=== PATIENT | female | born 1985 | race Caucasian/White ===

== ENCOUNTER 2017-10-21 11:31 | Inpatient (IN) | payer BC ==
[~2017-10-21] VITALS: Ht 154.9 cm; Wt 111.1 kg
[~2017-10-21 11:31] MED LIST: [UNRECOGNIZED DRUG - CODE] PO
[2017-10-21 11:38] VITALS: BP 147/92
--- NOTE | 2017-10-21 11:46 | NUR ---
Note undone in EDM - 10/21/17 at 1556 by [email or web address] PATIENT PRESENTS TO ED WITH [] . PT STATES [] . DENIES N/V/D; SKIN IS PINK/WARM/DRY; AAOX4 WITH EVEN AND STEADY GAIT; LUNGS CLEAR BL; HR EVEN AND REGULAR; PT DENIES ANY FEVER, CP, SOB, OR COUGH AT THIS TIME; PATIENT STATES PAIN OF 0/10 AT THIS TIME; VSS; PATIENT POSITIONED FOR COMFORT; HOB ELEVATED; BEDRAILS UP X2; BED DOWN. ER MD MADE AWARE OF PT STATUS.PATIENT PRESENTS TO ED WITH PAIN IN LEFT CALF WHEN WALKING . PT DENIES N/V/D; SKIN IS PINK/WARM/DRY; AAOX4 WITH EVEN AND STEADY GAIT; LUNGS CLEAR BL; HR EVEN AND REGULAR; PT DENIES ANY FEVER, CP, SOB, OR COUGH AT THIS TIME; PATIENT STATES PAIN OF 8/10 AT THIS TIME; VSS; PATIENT POSITIONED FOR COMFORT; HOB ELEVATED; BEDRAILS UP X2; BED DOWN. ER MD MADE AWARE OF PT STATUS.
--- NOTE | 2017-10-21 11:46 | NUR ---
PT CAME TO ED FOR C/O OF LEFT CALF PAIN WHEN WALKING. SHE HAS HAD 8/10 PAIN THAT RADIATES TO BACK FOR THE LAST 4 DAYS. CALF IS PAINFUL TO TOUCH NO REDDNESS NOTED NO C/O OF NUMBNESS AND PAIN IN FEET.PEDAL PULSES ARE PRESENT. ADMITS TO SMOKING AND TAKING CONTROL PILLS. RESPIRATIONS ARE EVEN AND UNLABORED, DENIES SOB, FEVER OR CHILLS.
[2017-10-21 13:15] LABS: BASOPHILS # (AUTO) 0.1 K/uL (0.00-0.22); BASOPHILS % (AUTO) 0.6 % (0.0-2.0); EOSINOPHILS # (AUTO) 0.2 K/uL (0-0.4); EOSINOPHILS % (AUTO) 1.9 % (0.0-4.0); HEMATOCRIT 39.4 % (36-48); HEMOGLOBIN 13.1 g/dL (12.0-16.0); LYMPHOCYTES # (AUTO) 2.6 K/uL (2.5-16.5); LYMPHOCYTES % (AUTO) 23.7 % (20.5-51.1); MEAN CORPUSCULAR HEMOGLOBIN 29 pg (27-31); MEAN CORPUSCULAR HGB CONC 33 g/dL (33-37); MEAN CORPUSCULAR VOLUME 87.8 fL (80-94); MONOCYTES # (AUTO) 0.8 K/uL (0.8-1.0); MONOCYTES % (AUTO) 7.5 % (1.7-9.3); NEUTROPHILS # (AUTO) 7.3 K/uL (1.8-7.7); NEUTROPHILS % (AUTO) 66.3 % (42.2-75.2); PLATELET COUNT (AUTO) 146 K/uL (140-450); RED BLOOD CELL COUNT(AUTO) 4.49 MIL/uL (4.20-5.40); RED CELL DISTRIBUTION WIDTH 13.7 % (11.6-13.7)
[2017-10-21] MEDS ORDERED: LOVENOX 1MG/KG Q24H SUBQ SCH (13:15)
[2017-10-21 13:36] LABS: ANION GAP 12.1 (8-16); CARBON DIOXIDE 27.1 mmol/L (21-32); CREATININE 0.6 mg/dL (0.6-1.3); POTASSIUM 4.2 mmol/L (3.5-5.1)
[2017-10-21 13:43] LABS: ALBUMIN 3.3 g/dL (3.4-5.0); TOTAL BILIRUBIN 0.2 mg/dL (0.0-1.0)
--- NOTE | 2017-10-21 13:43 | NUR ---
Yolie mazariegos in [facility] - 10/21/17 at 1602 by DELMAR HGB 6.3, DR CHARLES SUMMERS.
[2017-10-21 14:02] LABS: D-DIMER > 5000 ng/ml (0-400)
[2017-10-21] MEDS ORDERED: ENOXAPARIN 100 MG/ML SYR SUBQ SCH (14:10)
[2017-10-21] MEDS ORDERED: LORazepam 2 MG/ML VIAL IVP PRN (14:50)
[2017-10-21] MEDS ORDERED: ONDANSETRON 4 MG/2 ML VIAL IVP PRN (14:50)
[2017-10-21] MEDS ORDERED: ACETAMINOPHEN 325 MG TAB PO PRN (14:50)
[2017-10-21] MEDS ORDERED: HYDROcodone/APAP 5/325 MG 1 TAB TAB PO PRN (14:50)
[2017-10-21] MEDS ORDERED: MORPHINE SULFATE 4 MG/ML SYR IVP PRN (14:50)
[2017-10-21] MEDS ORDERED: LOVENOX 1MG/KG Q12H SUBQ SCH (15:00)
--- NOTE | 2017-10-21 16:00 | NUR ---
RECEIVED NEW PATIENT FROM ER ,UNDER THE CARE OF DR CLAUDIO MOORE WITH A DX OF DVT ON LEFT LEG. PATIENT AWAKE ALERT AND ORIENTED X 4 NO S/S OF RESP DISTRESS NOTED .ABLE TO MAKE NEEDS KNOWN . AT THE BED SIDE HELPING WITH THE NEEDS. STATED HAS TOLERABLE 4/10 ON HER LEFT LEG. DR CLAUDIO Luevano VISITED PATIENT. UNIT ORIENTATION GIVEN SAFETY HAS BEEN TAUGHT. PLAN OF CARE DISCUSSED WITH THE PATIENT VITALS STABLE WILL CONTINUE TO MONITOR.
[2017-10-21 16:40] VITALS: BP 130/63
[2017-10-21] MEDS ORDERED: WARFARIN 5 MG TAB PO SCH (17:00)
--- NOTE | 2017-10-21 17:24 | NUR ---
DUE MEDS COUMADIN 10MG PO GIVEN
--- NOTE | 2017-10-21 18:29 | NUR ---
SAFETY MAINTAINED CALL LIGHT IN REACH . STABLE CONDITION AT THIS TIME.
--- NOTE | 2017-10-21 19:10 | NUR ---
RECEIVED PT FROM DAY SHIFT NURSE GANGA-RN. PT RESTING IN BED. AOX4, ON ROOM AIR WITH LEFT AC #22G. FAMILY AT BEDSIDE. AMBULATORY, RESTROOM PRIVILEGES HOWEVER MINIMIZE WALKING-PT WALKS SLOWLY AND HUNCHED OVER. DVT LEFT LEG. REGULAR DIET. NO S/S OF RESPIRATORY DISTRESS OR DISCOMFORT AT THIS TIME. BED IN LOWEST POSITION. CALL LIGHT WITHIN REACH. WILL CONTINUE TO MONITOR.
[2017-10-21 20:00] VITALS: BP 135/73
--- NOTE | 2017-10-21 22:37 | NUR ---
PT RESTING IN BED. WILL CONTINUE TO MONITOR.
[2017-10-22] VITALS: BP 135/73
--- NOTE | 2017-10-22 00:34 | NUR ---
PT SLEEPING AT THIS TIME. NO S/S OF RESPIRATORY DISTRESS OR DISCOMFORT NOTED. BED IN LOWEST POSITION. CALL LIGHT WITHIN REACH. WILL CONTINUE TO MONITOR.
--- NOTE | 2017-10-22 02:42 | NUR ---
PT CONTINUES TO SLEEP. WILL CONTINUE TO MONITOR.
[2017-10-22] MEDS ORDERED: ENOXAPARIN 80 MG/0.8 ML SYR SUBQ SCH (03:00)
[2017-10-22] MEDS ORDERED: ENOXAPARIN 30 MG/0.3 ML SYR SUBQ SCH (03:00)
--- NOTE | 2017-10-22 03:22 | NUR ---
SCHEDULED MEDICATIONS GIVEN. PT TOLERATED WELL. WILL CONTINUE TO MONITOR.
--- NOTE | 2017-10-22 05:22 | NUR ---
PT SLEEPING AT THIS TIME. NO S/S OF RESPIRATORY DISTRESS OR DISCOMFORT NOTED AT THIS TIME. BED IN LOWEST POSITION. CALL LIGHT WITHIN REACH. WILL CONTINUE TO MONITOR.
[2017-10-22 06:51] LABS: BASOPHILS % (AUTO) 0.3 % (0.0-2.0); EOSINOPHILS # (AUTO) 0.3 K/uL (0-0.4); EOSINOPHILS % (AUTO) 3.1 % (0.0-4.0); HEMATOCRIT 35.6 % (36-48); LYMPHOCYTES # (AUTO) 3.8 K/uL (2.5-16.5); LYMPHOCYTES % (AUTO) 37.3 % (20.5-51.1); MEAN CORPUSCULAR HEMOGLOBIN 30 pg (27-31); MEAN CORPUSCULAR HGB CONC 34 g/dL (33-37); MEAN CORPUSCULAR VOLUME 88.4 fL (80-94); MONOCYTES # (AUTO) 1.1 K/uL (0.8-1.0); MONOCYTES % (AUTO) 10.5 % (1.7-9.3); NEUTROPHILS % (AUTO) 48.8 % (42.2-75.2); PLATELET COUNT (AUTO) 152 K/uL (140-450); RED BLOOD CELL COUNT(AUTO) 4.03 MIL/uL (4.20-5.40); RED CELL DISTRIBUTION WIDTH 13.6 % (11.6-13.7); WHITE BLOOD COUNT (AUTO) 10.2 K/uL (4.8-10.8)
--- NOTE | 2017-10-22 07:05 | NUR ---
ENDORSED PT TO DAY SHIFT NURSE DON TO CONTINUE PT CARE. PT STABLE AT THIS TIME.
--- NOTE | 2017-10-22 07:06 | NUR ---
RECEIVED REPORT FROM MEDICAL BILLING MANAGER NURSE AT BEDSIDE FOR CONTINUITY OF CARE . PATIENT STABLE. PATIENT RESTING IN BED WITH EYES CLOSED. RESP EVEN AND UNLABORED. IV SITE TO LEFT HAND 20G. SL.
[2017-10-22 08:00] VITALS: BP 107/63
--- NOTE | 2017-10-22 08:00 | NUR ---
INITIAL ASSESSMENT PERFORMED. PATIENT ALERT AND ABLE TO VERBALIZE NEEDS. NO ACUTE DISTRESS. RESP EVEN AND UNLABORED. PATIENT LUNG SOUNDS CLEAR. BOWEL SOUNDS ACTIVE. PATIENT WITH IV TO LEFT FOREARM WITH 20G SL. SKIN INTACT. PLAN OF CARE DISCUSSED WITH PATIENT.BOARD UPDATED. PATIENT AMBULATING TO RESTROOM VOIDING FREELY. PATIENT VERBALIZED PAIN WILL MEDICATE. CALL LIGHT WITHIN REACH. WILL CONT TO MONITOR.
[2017-10-22 08:22] LABS: PROTHROMBIN TIME 10.4 secs (10.8-13.4)
[2017-10-22] MEDS ORDERED: NORETHINDRONE E ESTRADIOL IRON PO SCH (09:00)
--- NOTE | 2017-10-22 10:18 | NUR ---
PATIENT HAS BEEN SCREENED AND CATEGORIZED HIGH NUTRITION RISK. PATIENT WILL BE SEEN WITHIN 1-2 DAYS OF ADMISSION. 10/22/17 - 10/23/[address]
--- NOTE | 2017-10-22 10:30 | NUR ---
PATIENT ALERT AND ABLE TO MAKE NEEDS KNOWN. NO ACUTE DISTRESS NOTED. RESP EVEN AND UNLABORED. PATIENT VERBALIZED PAIN TOLERABLE. CALL LIGHT WITHIN REACH. WILL CONT TO MONITOR.
[2017-10-22 11:02] LABS: ANION GAP 17.8 (8-16); CARBON DIOXIDE 23.3 mmol/L (21-32); CREATININE 0.7 mg/dL (0.6-1.3); POTASSIUM 4.1 mmol/L (3.5-5.1)
--- NOTE | 2017-10-22 12:49 | NUR ---
RECEIVED A CALL FROM KRISTEN. FROM [facility], THE CM IS TALYA, NO PHONE NUMBER. WAS TOLD TO FAX REVIEW TO [phone]. PENDING REFERENCE # [id number]. FAXED INITIAL REVIEW TO AT [phone]. PHONE FOR , ,OPT 1.
[2017-10-22] MEDS ORDERED: RIVAROXABAN 15 MG TAB PO SCH ×2 (13:13→21:00)
--- NOTE | 2017-10-22 14:06 | NUR ---
10/22/17 RD INITIAL ASSESSMENT COMPLETED PLEASE REFER TO NUTRITION ASSESSMENT UNDER CARE ACTIVITY FOR ESTIMATED NUTRITIONAL NEEDS. 1. CONTINUE REGULAR DIET TOLERATED 2. PROVIDED PT WITH FOOD-DRUG INTERACTION AND HEALTHY EATING HABITS EDUCATION. PT ACCEPTED. 3. RD TO FOLLOW-UP 5-7 DAYS, LOW RISK THAI PALMA RD
--- NOTE | 2017-10-22 14:22 | NUR ---
RECEIVED AN ORDER TO SEE IF PATIENT'S INSURANCE COVERS XARELTO. I WAS INFORMED THAT HER PHARMACY WAS [facility] IN [place] [phone]. I CALLED THEM AND SPOKE WITH THE PHARMACIST HEBERT. SHE SAID THAT THE PATIENT WILL BE COVERED, BUT DOES HAVE A $20.00 COPAY. I INFORMED MAGDALENO DAVENPORT TO INFORM THE PATIENT.
[2017-10-22 16:00] VITALS: BP 107/58
[2017-10-22] MEDS ORDERED: WARFARIN 5 MG TAB PO SCH (17:00)
[2017-10-22] MEDS ORDERED: RIVA15TA1 PO (17:15)
--- NOTE | 2017-10-22 17:20 | NUR ---
PATIENT MADE AWARE OF DISCHARGE ORDER. PATIENT VERBALIZED UNDERSTANDING AND AGREEMENT. WILL DISCHARGE PENDING TRANSPORTATION AVAILABILITY.
--- NOTE | 2017-10-22 18:48 | NUR ---
DISCUSSED DISCHARGE INSTRUCTIONS AT BEDSIDE WITH PT. PATIENT VERBALIZED UNDERSTANDING AND AGREEMENT. RX SCRIPT PROVIDED TO PATIENT. ALL BELONGINGS IN PT POSSESSION. IV SITE REMOVED. TOLERATED WELL. LUMEN INTACT. ID BAND REMOVED. PATIENT TO BE DISCHARGED ONCE RIDE ARRIVES. PATIENT STATED THEY ARE 5 MINUTES AWAY AND WILL NOTIFY WHEN TO BE WHEELED OUT.
--- NOTE | 2017-10-22 19:00 | NUR ---
PATIENT LEFT UNIT IN WITHOUT DIFFICULTIES IN PRIVATE VEHICLE ACCOMPANIED BY DAUGHTER.
[2017-10-23] MEDS ORDERED: CLINICAL MONITORING MC SCH (09:00)
== END 2017-10-22 19:00 | disposition home or self-care (01) | DRG 300 ==
LOC: MED 11:31 → MTU 14:55
PROVIDERS: ADMIT Internal Medicine Cardiovascular Disease; ATTEND Internal Medicine Cardiovascular Disease
DX: I82.402 Acute embolism and thrombosis of unspecified deep veins of left lower extremity (principal); Z68.42 Body mass index [BMI] 45.0-49.9, adult; E88.09 Other disorders of plasma-protein metabolism, not elsewhere classified; D72.829 Elevated white blood cell count, unspecified; E66.9 Obesity, unspecified; R79.1 Abnormal coagulation profile
CPT/HCPCS: 36415; 73590; 80048; 80053; 82550; 85025; 85379; 85610; 85730; 87081; 93971; J1650; Q0092

== ENCOUNTER 2018-09-25 15:50 | Inpatient (IN) | payer BC ==
[~2018-09-25] VITALS: Ht 157.5 cm; Wt 121.1 kg
[~2018-09-25 15:50] MED LIST changes: +RIVA15TA1 PO; -[UNRECOGNIZED DRUG - CODE] PO
[2018-09-25 15:58] VITALS: BP 169/101
--- NOTE | 2018-09-25 17:14 | NUR ---
PT AMBULATED TO BED 5 AT THIS TIME. REPORT GIVEN TO GABRIEL DOLAN.
--- NOTE | 2018-09-25 17:41 | NUR ---
PT BIB SELF C/O CRAMPING IN L THIGH X2. PT REPORTS CONSTANT 8/10 IN MEDIAL THIGH. PT TREATED WITH TYLEONOL WITH NO RELIEF. OCCURED WHILE DRIVING, AND HAS GOTTEN WORSE. PT WENT OFF LOVENOX 3 WEEKS AGO. PT HAS HX OF LT LOW LEG DVT 2018 FROM THE PILL.UA DONE HCG NEG, PT DENIES N/V/D; SKIN IS INTACT, PINK/WARM/DRY; AAOX4, PERRL, WITH EVEN AND STEADY GAIT; LUNGS CLEAR BL, BREATHING UNLABORED; HR EVEN AND REGULAR, BL PERIPHERAL PULSES PRESENT; BS ACTIVE X4, NO TENDERNESS TO PALPATION. PT DENIES ANY FEVER, CP, SOB, OR COUGH AT THIS TIME; PT STATES 7/10 PAIN AT THIS TIME; VSS; PATIENT POSITIONED FOR COMFORT; HOB ELEVATED; BEDRAILS UP X2; BED DOWN.
[2018-09-25 18:03] LABS: BASOPHILS # (AUTO) 0.1 K/uL (0.00-0.22); EOSINOPHILS # (AUTO) 0.3 K/uL (0-0.4); EOSINOPHILS % (AUTO) 2.5 % (0.0-4.0); HEMATOCRIT 37.9 % (36-48); LYMPHOCYTES # (AUTO) 2.8 K/uL (2.5-16.5); LYMPHOCYTES % (AUTO) 25.9 % (20.5-51.1); MEAN CORPUSCULAR HEMOGLOBIN 28 pg (27-31); MEAN CORPUSCULAR HGB CONC 32 g/dL (33-37); MEAN CORPUSCULAR VOLUME 87.7 fL (80-94); MONOCYTES # (AUTO) 0.7 K/uL (0.8-1.0); MONOCYTES % (AUTO) 6.4 % (1.7-9.3); NEUTROPHILS # (AUTO) 6.9 K/uL (1.8-7.7); NEUTROPHILS % (AUTO) 64.2 % (42.2-75.2); PLATELET COUNT (AUTO) 260 K/uL (140-450); RED BLOOD CELL COUNT(AUTO) 4.32 MIL/uL (4.20-5.40); RED CELL DISTRIBUTION WIDTH 14.8 % (11.6-13.7); WHITE BLOOD COUNT (AUTO) 10.7 K/uL (4.8-10.8)
[2018-09-25 18:04] LABS: APPEARANCE,URINE CLOUDY (CLEAR); BILIRUBIN,URINE NEGATIVE (NEGATIVE); BLOOD, URINE TRACE-L (NEGATIVE); COLOR,URINE YELLOW (YELLOW); LEUKOCYTE ESTERASE ,URINE NEGATIVE (NEGATIVE); NITRITE, URINE NEGATIVE (NEGATIVE); PH,URINE 5.5 (5.0-9.0); UGLUCOSE NEGATIVE (NEGATIVE)
--- NOTE | 2018-09-25 18:22 | NUR ---
PT APPEARS TO BE RELAXED, RESTING IN BED. VS WNL. DENIES ANY PAIN. DENIES N/V. BREATHING NORMAL. NO SOB OR ACUTE DISTRESS NOTED.
[2018-09-25 18:24] LABS: ANION GAP 12.2 (8-16); CREATININE 0.7 mg/dL (0.6-1.3); POTASSIUM 4.2 mmol/L (3.5-5.1)
[2018-09-25 18:29] LABS: ALBUMIN 3.7 g/dL (3.4-5.0); TOTAL BILIRUBIN 0.3 mg/dL (0.0-1.0)
[2018-09-25] MEDS ORDERED: HEPARIN PER PHARMACY MC ONE ×2 (19:05)
[2018-09-25] MEDS ORDERED: hePARIN / DEXT 5% PREMIX 250 ML IV ONE (19:05)
[2018-09-25] MEDS ORDERED: NACL 0.9% 1,000 ML IV SCH (19:08)
[2018-09-25] MEDS ORDERED: HYDROcodone/APAP 7.5/325 MG 1 TAB PO PRN (19:10)
[2018-09-25] MEDS ORDERED: MORPHINE SULFATE 2 MG/ML SYR IVP PRN (19:10)
[2018-09-25] MEDS ORDERED: DOCUSATE SODIUM 100 MG GELCAP PO PRN (19:10)
[2018-09-25] MEDS ORDERED: ACETAMINOPHEN 325 MG TAB PO PRN ×2 (19:10→23:10)
[2018-09-25] MEDS ORDERED: ONDANSETRON 4 MG/2 ML VIAL IM/IVP PRN (19:10)
[2018-09-25 19:11] LABS: PROTHROMBIN TIME 9.3 secs (10.8-13.4)
--- NOTE | 2018-09-25 19:16 | NUR ---
REPORT GIVEN TO SMASHER RN FOR CONTINUITY OF CARE.
--- NOTE | 2018-09-25 19:30 | NUR ---
RECEIVED REPORT FROM AM NURSE. PT LAYING IN BED, RR EVEN AND UNLABORED. DENIES NEURO CHANGES, CP OR SOB. IVs STARTED ON LAC AND RAC. ALL NEEDS MET.
[2018-09-25] MEDS ORDERED: hePARIN / DEXT 5% PREMIX 250 ML IV SCH (19:40)
[2018-09-25] MEDS ORDERED: HEPARIN PER PHARMACY MC PRN (19:40)
--- NOTE | 2018-09-25 19:40 | NUR ---
MAGALY NINO FROM PHARMACY, WAS NOTIFIED THAT HEPARIN WILL BE VERIFIED IN 15 MINS. WILL NOTIFY MEDSURG NURSE.
[2018-09-25 19:45] LABS: BARBITURATE, URINE NEG. ng/ml (NEG <=200); BENZODIAZEPINE, URINE NEG. ng/mL (NEG <=200); CANNABINOID, URINE POS. ng/mL (NEG <=50); COCAINE, URINE NEG. ng/mL (NEG <=300); OPIATE, URINE NEG. ng/mL (NEG <=2000); PHENCYCLIDINE SCREEN,URINE NEG. ng/mL (NEG <=25)
[2018-09-25 19:56] LABS: PHOSPHORUS 3.9 mg/dL (2.5-4.9); THYROID STIMULATING HORMONE 1.5 uIU/mL (0.34-3.74)
--- NOTE | 2018-09-25 20:00 | NUR ---
Patient will be admitted to care of DR SNYDER. Admited to [facility]. Will go to [id number]. Belongings list completed. Report to MAGDALENO CRAIG.
--- NOTE | 2018-09-25 20:12 | NUR ---
PT ARRIVED AT UNIT VIA WHEELCHAIR, PT AMBULATED TO RESTROOM THEN TO BED, TOLERATED WELL, REPORT RECEIVED FROM ER NURSE MICHELLE RN, PT STABLE, NO DISTRESS NOTED, IV TO R AC 20G PATENT, INTACT, AND L AC 20G PATENT, INTACT, SL, PT ON ROOM AIR, NO SOB, REPORTED HAVING TOLERABLE PAIN AT THIS MOMENT, ORIENT PT TO ROOM, BED, AND CALL LIGHT, MRSA SWAB TAKEN, INITIAL ASSESSMENT DONE, ALL SAFETY PRECAUTION MET, CALL LIGHT WITHIN REACH, WILL CONTINUE TO MONITOR.
[2018-09-25 20:20] VITALS: BP 110/62
--- NOTE | 2018-09-25 20:46 | NUR ---
CALLED DR. BERTHA Jane FOR ORDERS, AWAITING DR. WITT BACK.
--- NOTE | 2018-09-25 21:06 | NUR ---
PAGED DR. STONE AGAIN REGARDING PT ORDER. AWAITING , TO CALL BACK.
[2018-09-25] MEDS ORDERED: PHARMACY TO DOSE MC PRN (21:15)
--- NOTE | 2018-09-25 21:18 | NUR ---
DR. STONE CALLED BACK AND ORDERED REGULAR DIET, LOVENOX PER PHARMACY AND COUMADIN PER PHARMACY DOSING. WILL PUT IN ORDERS AND CONTINUE WITH ORDERS.
--- NOTE | 2018-09-25 22:11 | NUR ---
PT STATED FEELING DISCOMFORT TO L AC 20G IV, IV TAKEN OUT, CATH INTACT, ORDERED PT SL, PT RESTING, NO DISTRESS NOTED, CALL LIGHT WITHIN REACH, WILL CONTINUE TO MONITOR.
[2018-09-25] MEDS ORDERED: ONDANSETRON 4 MG/2 ML VIAL IVP PRN (23:10)
[2018-09-25] MEDS ORDERED: LORazepam 2 MG/ML VIAL IVP PRN (23:10)
[2018-09-25] MEDS: ENOXAPARIN 120 MG/0.8 ML SYR SUBQ SCH (23:21)
[2018-09-26 00:10] VITALS: BP 104/40
[2018-09-26] MEDS: HYDROcodone/APAP 5/325 MG 1 TAB TAB PO PRN ×2 (00:10→20:37)
--- NOTE | 2018-09-26 00:10 | NUR ---
CHECKED ON PT, V/S TAKEN, WNL, PT STATED HAVING PAIN 6/10, PAIN MEDICATION PER DR ORDER GIVEN, PT TOLERATED WELL, NO DISTRESS NOTED, CALL LIGHT WITHIN REACH, WILL CONTINUE TO MONITOR.
--- NOTE | 2018-09-26 03:40 | NUR ---
PT SLEEPING, NO DISTRESS NOTED, CALL LIGHT WITHIN REACH, WILL CONTINUE TO MONITOR.
[2018-09-26 06:58] LABS: BASOPHILS % (AUTO) 0.5 % (0.0-2.0); EOSINOPHILS # (AUTO) 0.4 K/uL (0-0.4); EOSINOPHILS % (AUTO) 3.6 % (0.0-4.0); HEMOGLOBIN 11.5 g/dL (12.0-16.0); LYMPHOCYTES % (AUTO) 38.2 % (20.5-51.1); MEAN CORPUSCULAR HEMOGLOBIN 28 pg (27-31); MEAN CORPUSCULAR HGB CONC 32 g/dL (33-37); MEAN CORPUSCULAR VOLUME 87.9 fL (80-94); MONOCYTES # (AUTO) 0.7 K/uL (0.8-1.0); NEUTROPHILS # (AUTO) 5.3 K/uL (1.8-7.7); NEUTROPHILS % (AUTO) 50.7 % (42.2-75.2); PLATELET COUNT (AUTO) 261 K/uL (140-450); RED CELL DISTRIBUTION WIDTH 14.7 % (11.6-13.7); WHITE BLOOD COUNT (AUTO) 10.5 K/uL (4.8-10.8)
--- NOTE | 2018-09-26 07:21 | NUR ---
ENDORSED PT TO DAY SHIFT NURSE HELENA DOLAN, PT STABLE, NO DISTRESS NOTED, CALL LIGHT WITHIN REACH, WILL CONTINUE TO MONITOR.
[2018-09-26 07:22] LABS: ALBUMIN 3.3 g/dL (3.4-5.0); ANION GAP 9.6 (8-16); CARBON DIOXIDE 30.8 mmol/L (21-32); CREATININE 0.6 mg/dL (0.6-1.3); POTASSIUM 4.4 mmol/L (3.5-5.1); TOTAL BILIRUBIN 0.2 mg/dL (0.0-1.0)
--- NOTE | 2018-09-26 07:22 | NUR ---
RECEIVED REPORT FROM THERAPEUTIC RECREATION SPECIALIST NURSE FOR CONTINUITY OF CARE. PT IN STABLE CONDITION. RESPIRATIONS EVEN AND UNLABORED. IV INTACT AND PATENT. SAFETY MEASURES IN PLACE. BED IN LOW POSITION. CALL LIGHT AT BEDSIDE. WILL CONTINUE TO MONITOR.
[2018-09-26 08:00] VITALS: BP 120/60
--- NOTE | 2018-09-26 08:36 | NUR ---
PATIENT HAS BEEN SCREENED AND CATEGORIZED HIGH NUTRITION RISK. PATIENT WILL BE SEEN WITHIN 1-2 DAYS OF ADMISSION. 09/26/18-09/27/[address]
--- NOTE | 2018-09-26 09:00 | NUR ---
GAVE ORDERED DUE MEDICATION. PT TOLERATED WELL. WILL CONTINUE TO MONITOR.
[2018-09-26] MEDS: ENOXAPARIN 120 MG/0.8 ML SYR SUBQ SCH (09:57)
--- NOTE | 2018-09-26 11:44 | NUR ---
PT LYING IN BED IN STABLE CONDITION WITH FAMILY AT BEDSIDE. WILL CONTINUE TO MONITOR. PT IN STABLE CONDITION. BED IN LOW POSITION.
--- NOTE | 2018-09-26 14:30 | NUR ---
PT LYING IN BED WATCHING TV IN STABLE CONDITION. WILL CONTINUE TO MONITOR. BED IN LOW POSITION. CALL LIGHT AT BEDSIDE.
--- NOTE | 2018-09-26 15:54 | NUR ---
09/26/18 RD INITIAL ASSESSMENT COMPLETED PLEASE REFER TO NUTRITION ASSESSMENT UNDER CARE ACTIVITY FOR ESTIMATED NUTRITIONAL NEEDS. 1. CONTINUE REGULAR DIET TOLERATED 2. RD PROVIDED FOOD AND MEDICATION INTERACTION EDUCATION. PT ACCPETED 3. RD TO FOLLOW-UP 5-7 DAYS, LOW RISK DAVID LANDIS RD
[2018-09-26 16:00] VITALS: BP 110/58
[2018-09-26] MEDS ORDERED: WARFARIN 5 MG TAB PO SCH (17:00)
--- NOTE | 2018-09-26 17:00 | NUR ---
COUMADIN NOT GIVEN PER CONSULT WITH ROJELIO LYNO.
--- NOTE | 2018-09-26 19:34 | NUR ---
GAVE REPORT TO INSECTICIDE EXPERT NURSE FOR CONTINUITY OF CARE. PT IN STABLE CONDITION.
--- NOTE | 2018-09-26 19:35 | NUR ---
REPORT RECEIVED FROM AM NURSE AT BEDSIDE. PT IN STABLE CONDITION. AAOX4. INTRODUCED SELF TO PT. BOARD UPDATED. NO COMPLAINTS OF PAIN. NO SOB. AFEBRILE. IV SITE R AC 20G SL PATENT AND INTACT. SKIN WARM, DRY, AND INTACT WITH NO OPEN WOUNDS. BED LOCKED IN LOW POSITION. CALL GREEN WITHIN REACH. SAFETY PRECAUTIONS IN PLACE. ALL NEEDS MET AT THIS TIME.
--- NOTE | 2018-09-26 20:15 | NUR ---
GAVE REPORT TO ONCOLOGY CONSULTANT NURSE FOR CONTINUITY OF CARE. PT IN STABLE CONDITION. Addendum: 09/26/18 at 2019 by Marge Finley RN 1933 GAVE REPORT TO ONCOLOGY CONSULTANT NURSE FOR CONTINUITY OF CARE. PT IN STABLE CONDITION.
[2018-09-26] MEDS: RIVAROXABAN 15 MG TAB PO SCH (20:36)
--- NOTE | 2018-09-26 20:37 | NUR ---
XARELTO GIVEN PO. NORCO GIVEN FOR 6/10 PAIN. PT TOLERATED WELL.
--- NOTE | 2018-09-26 22:30 | NUR ---
PT IN LAYING IN BED WATCHING TV. NO S/S OF DISTRESS NOTED. WILL CONTINUE TO MONITOR.
[2018-09-27] VITALS: BP 119/59
--- NOTE | 2018-09-27 00:45 | NUR ---
PT SLEEPING COMFORTABLY RIGHT LATERAL BUT AROUSABLE. NO S/S OF DISTRESS NOTED. BREATHING EVEN, UNLABORED, AND WNL. WILL CONTINUE TO MONITOR.
--- NOTE | 2018-09-27 02:30 | NUR ---
PT SLEEPING COMFORTABLY IN BED. NO S/S OF DISTRESS NOTED. BREATHING EVEN, UNLABORED, AND WNL. WILL CONTINUE TO MONITOR.
--- NOTE | 2018-09-27 04:45 | NUR ---
PT SLEEPING COMFORTABLY BUT AROUSABLE. NO S/S OF DISTRESS NOTED. NO COMPLAINTS OF PAIN. NO SOB. AFEBRILE.
--- NOTE | 2018-09-27 07:10 | NUR ---
REPORT GIVEN TO AM NURSE AT BEDSIDE. PT IN STABLE CONDITION.
--- NOTE | 2018-09-27 07:11 | NUR ---
RECEIVED BEDSIDE REPORT FROM RESTUARANT CREW WORKER NURSE. PATIENT IS AWAKE, ALERT AND ORIENTEDX4. NO SIGNS OF DISTRESS ON RA. SKIN IS INTACT. IV ON R AC 20G SL. CLEAN, DRY AND INTACT. PATIENT IS AMBULATORY, GAIT IS STEADY. PATIENT IS CONTINENT. BED IN LOW POSITION. CALL LIGHT WITHIN REACH. WILL CONTINUE TO MONITOR THE PATIENT.
[2018-09-27 07:18] LABS: BASOPHILS % (AUTO) 0.4 % (0.0-2.0); EOSINOPHILS # (AUTO) 0.3 K/uL (0-0.4); EOSINOPHILS % (AUTO) 3.3 % (0.0-4.0); HEMATOCRIT 35.9 % (36-48); HEMOGLOBIN 11.5 g/dL (12.0-16.0); LYMPHOCYTES # (AUTO) 2.7 K/uL (2.5-16.5); LYMPHOCYTES % (AUTO) 30.5 % (20.5-51.1); MEAN CORPUSCULAR HEMOGLOBIN 28 pg (27-31); MEAN CORPUSCULAR HGB CONC 32 g/dL (33-37); MONOCYTES # (AUTO) 0.7 K/uL (0.8-1.0); MONOCYTES % (AUTO) 8.5 % (1.7-9.3); NEUTROPHILS # (AUTO) 5.1 K/uL (1.8-7.7); NEUTROPHILS % (AUTO) 57.3 % (42.2-75.2); PLATELET COUNT (AUTO) 291 K/uL (140-450); RED BLOOD CELL COUNT(AUTO) 4.08 MIL/uL (4.20-5.40); RED CELL DISTRIBUTION WIDTH 14.8 % (11.6-13.7); WHITE BLOOD COUNT (AUTO) 8.8 K/uL (4.8-10.8)
[2018-09-27 07:57] LABS: ANION GAP 12.2 (8-16); CREATININE 0.7 mg/dL (0.6-1.3); POTASSIUM 4.2 mmol/L (3.5-5.1)
[2018-09-27 08:00] VITALS: BP 119/62
[2018-09-27] MEDS: RIVAROXABAN 15 MG TAB PO SCH (08:57)
--- NOTE | 2018-09-27 08:57 | NUR ---
ADMINISTERED MEDS. PATIENT AWARE OF D/C TODAY. WILL CONTINUE TO MONITOR THE PATIENT
[2018-09-27 09:38] LABS: PROTHROMBIN TIME 10.1 secs (10.8-13.4)
--- NOTE | 2018-09-27 10:00 | NUR ---
PATIENT SITTING IN BED ON THE PHONE. NO SIGNS OF DISTRESS. WILL CONTINUE TO MONITOR THE PATIENT
--- NOTE | 2018-09-27 12:00 | NUR ---
DR SNYDER WANTS PATIENTS PHARMACY TO CALL HIM FOR THE MEDS. WILL CALL THE PHARMACY AND LET THEM KNOW
--- NOTE | 2018-09-27 13:44 | NUR ---
CALLED [facility] AT [phone]. THEY SAID THEY WILL CALL DR SNYDER AT [phone] TO GET MEDICATION ORDERS. WILL AWAIT FOR ORDERS TO DISCHARGE PATIENT.
[2018-09-27] MEDS ORDERED: RIVA15TA1 PO (14:32)
--- NOTE | 2018-09-27 14:40 | NUR ---
PATIENT STILL WAITING TO LEAVE. CALLED DR SNYDER HE SAID THE PHARMACY DID NOT CALL HIM AND TO HAVE THEM CALL HIM. TALKED TO THE [facility] AGAIN AT [phone], THEY DID NOT CALL HIM LIKE ASKED TO EARLIER. CALLED [facility] AGAIN AND QUICK THE PHARMACIST SAID SHE WILL CALL DR SNYDER AND FIND OUT THE MEDS
--- NOTE | 2018-09-27 15:25 | NUR ---
PATIENT DOES NOT WANT TO WAIT FOR THE MEDS CONFIRMATION. SHE SAID SHE WILL GO TO [facility] AND FIND OUT IF THE MEDS ARE SENT. EDUCATED PATIENT ON DISEASE PROCESS, ABN S/SX, WHEN TO GO TO THE ER, EDUCATED ON MEDS, MEDS ARE BEING SENT TO [facility]LECT[facility]IC[facility], EDUCATED ON F/U W DR BLUE. PATIENT VERBALIZED UNDERSTANDING. PATIENT SIGNED ALL PAPERWORK. IV REMOVED, TIP INTACT. EDUCATED ON THE REFUSAL OF PNA AND FLU VACCINE. REMOVED ID BAND. PATIENT LEFT WALKING IN STABLE CONDITION
--- NOTE | 2018-09-30 16:03 | NUR ---
PER REQUEST OF YESENIA KRAMER, FAXED DISCHARGE INSTRUCTIONS TO THEM At [phone]
== END 2018-09-27 15:25 | disposition home or self-care (01) | DRG 301 ==
LOC: MED 15:50 → MTU 19:36
PROVIDERS: ADMIT Preventive Medicine Preventive Medicine/Occupational Environmental Medicine; ATTEND Preventive Medicine Preventive Medicine/Occupational Environmental Medicine
DX: I82.432 Acute embolism and thrombosis of left popliteal vein (principal); F12.90 Cannabis use, unspecified, uncomplicated; R79.1 Abnormal coagulation profile; I82.412 Acute embolism and thrombosis of left femoral vein; Z87.891 Personal history of nicotine dependence; Z79.01 Long term (current) use of anticoagulants; Z79.899 Other long term (current) drug therapy
CPT/HCPCS: 36415; 80048; 80053; 80305; 81003; 81025; 82150; 82550; 83036; 83690; 83735; 83880; 84100; 84443; 84484; 85025; 85379; 85610; 85730; 87081; 93971; 99285; J1644; J1650; Q0092